=== PATIENT | male | born 1930 | race Caucasian/White ===

== ENCOUNTER 2016-09-17 15:16 | Emergency (ER) | payer OTHER, MEDICARE ==
[~2016-09-17] VITALS: Ht 182.8 cm; Wt 79.4 kg
[~2016-09-17 15:16] MED LIST: ACETAMINOPHEN325 M2 PO; ALLOPURINOL100 MG PO; AMBIEN5 MG PO; AMLODIPINE BES2.5 MG PO; AMLODIPINE BESYL5 MG PO; APAP325 MG PO; ARTHRITIS PAIN650 M3 PO; ASPIRIN81 M1 PO; AUGMENTIN 875 M1 TAB PO; B121000 MCG/1 IM; CEFTIN500 M1 PO; CLARITIN10 MG PO; COLACE100 MG PO; CORDARONE200 MG PO; COZAAR100 MG PO; CRESTOR10 MG PO; CRESTOR20 M1 PO; Clopidogrel75 MG PO; DOCUSATE SODIU100 M2 PO; DOXYCYCLINE100 MG PO; DUONEB 3 MG/3 ML3 M1 NEB; FISH FLAX BORAGE OIL PO; GLIPIZIDE2.5 MG PO; GLIPIZIDE5 MG PO; GLUCOPHAGE500 MG PO; GUAFENESIN400 MG PO; GUAIFENESIN600 MG PO; HUMALOG100 U/ML SC; HYDRODIURIL25 MG PO; HYDROPHILIC GRX1 OIN TP; K-TAB20 MEQ PO; LASIX20 MG PO; LASIX40 MG PO; LATANOPROST2.5 ML OP; LATANOPROST2.5 ML OU; LEVOFLOXAC500 MG/100 IV; LOPRESSOR25 MG PO; LOSARTAN POTAS100 M1 PO; LYRICA75 M1 PO; Lopressor25 MG PO; Lovenox40 MG/0.4 SC; METOPROLOL50 MG PO; MIRALAX POWDER17 G1 PO; MORPHINE SULFAT15 M7 PO; MS CONTIN30 MG PO; Meclizine25 MG PO; NEURONTIN300 MG PO; NEURONTIN600 MG PO; NITROSTAT0.4 MG SL; NORVASC5 MG PO; NOVAPLUS SOLU-M40 MG IV; OMEPRAZOLE DR20 MG PO; OVRAL-21 50 MCG1 TAB PO; OXYBUTYNIN CHLOR5 MG PO; OXYCODONE HCL5 MG PO; PANTOPRAZOLE SO20 MG PO; PENNSAID112 GM TP; PLAVIX75 M1 PO; PLAVIX75 MG PO; PREDNICOT20 MG PO; PRILOSEC OTC20 MG PO; RANITIDINE150 MG PO; RED YEAST RICE600 MG PO; REFRESH 1 ML1 ML OPH; SENNA8.6 MG PO; STOOL SOFTENER100 MG PO; TRAVAPROST; TRAVAPROST OPH; TRAVATAN 0.0042.5 M1 INTRAOC; TRAVATAN Z 5 ML5 ML OPH; TYLENOL W/CODEI1 TA2 PO; VANCOMYCIN1.5 GM/251 IV; VISION PLUS LU1 EACH PO; VITAMIN B-12100 MCG PO; VITAMIN C100 M1 PO; VITAMIN D50000 IU PO; XALATAN 0.005%2.5 ML INTRAOC; ZOLOFT25 MG PO; ZOSYN 50 ML50 ML IV; [UNRECOGNIZED DRUG - OTHER] PO
[2016-09-17 15:31] VITALS: BP 144/58
[2016-09-17 15:49] LABS: BASO % 0.5 % (0.0-1.0); EOS # 0.2 10*3/uL (0.0-0.4); EOS % 2.6 % (1.0-4.0); HEMATOCRIT 37.2 % (42.0-52.0); HEMOGLOBIN 11.6 g/dl (14.0-18.0); LYMPH # 1.2 10*3/uL (1.3-4.4); LYMPH % 20.3 % (27.0-41.0); MEAN CELL VOLUME 89.4 fl (80.0-94.0); MEAN CORPUSCULAR HGB 27.9 pg (27.0-31.0); MEAN CORPUSCULAR HGB CONC 31.2 g/dl (33.0-37.0); MEAN PLATELET VOLUME 12.3 fl (9.6-12.3); MONO # 0.4 10*3/uL (0.1-1.0); MONO % 7.4 % (3.0-9.0); NEUT % 68.9 % (47.0-73.0); PLATELET COUNT AUTOMATED 95 10*3/uL (130-400); RED BLOOD COUNT 4.16 10*6/uL (4.50-5.90); WHITE BLOOD COUNT 5.9 10*3/uL (4.8-10.8)
[2016-09-17] MEDS ORDERED: LASIX40 MG PO (15:56)
[2016-09-17] MEDS ORDERED: CLOPIDOGREL75 MG PO (15:57)
[2016-09-17] MEDS ORDERED: B12100 MC1 PO (15:58)
[2016-09-17] MEDS ORDERED: CHEWABLE VITE1 CTB PO (15:59)
[2016-09-17 16:05] LABS: PROTHROMBIN TIME 10.7 SECONDS (9.0-12.4)
[2016-09-17 16:06] LABS: BILIRUBIN, TOTAL 0.5 mg/dl (0.2-1.0); BUN 18 mg/dl (7-24); MAGNESIUM 1.8 mg/dL (1.5-2.1); SODIUM 143 mmol/L (136-145); TOTAL PROTEIN 7.2 gm/dL (6.4-8.2); TROPONIN I 0.017 ng/ml (<0.045)
[2016-09-17 16:07] LABS: ALBUMIN 3.4 gm/dl (3.1-4.5); ALKALINE PHOSPHATASE 98 U/L (45-117); C-REACTIVE PROTEIN 6.02 MG/DL (0-0.3); CARBON DIOXIDE 32 mmol/L (21-32); CHLORIDE 102 mmol/L (98-107); CPK 121 U/L (39-308); EST GLOM FILT AFRICAN AMERICAN > 60 ml/min; GLUCOSE 130 mg/dL (65-99); POTASSIUM 4.3 mmol/L (3.5-5.1); SGOT/AST 17 IU/L (3-35); SGPT/ALT 16 U/L (12-78)
[2016-09-17 16:09] LABS: CKMB 7.5 ng/ml (0.5-3.6)
== END 2016-09-17 18:13 | disposition home or self-care (01) ==
LOC: ED 15:16
PROVIDERS: Registered Nurse
DX: J90 Pleural effusion, not elsewhere classified (principal); R60.0 Localized edema; I25.10 Atherosclerotic heart disease of native coronary artery without angina pectoris; Z87.891 Personal history of nicotine dependence; Z98.890 Other specified postprocedural states; Z79.82 Long term (current) use of aspirin; Z79.899 Other long term (current) drug therapy; Z88.5 Allergy status to narcotic agent; Z88.6 Allergy status to analgesic agent; Z88.3 Allergy status to other anti-infective agents; Z96.653 Presence of artificial knee joint, bilateral

== ENCOUNTER 2016-10-09 08:58 | Inpatient (IN) | payer OTHER ==
[~2016-10-09] VITALS: Ht 170.2 cm; Wt 78.1 kg
--- NOTE | ~2016-10-09 | PR ---
[place], [place] PROGRESS NOTE NAME: [facility]BIO [facility] [id number] UNIT #: [id number] ROOM: 515 DOCTOR: ANÍBAL GUERIN MD BIRTHDATE: [birth year] DOS: SUBJECTIVE: The patient is sitting up in chair, having his breakfast, reporting significant improvement in his shortness of breath since admission. He expressed his wishes to go home and followup with [facility] next week. No chest pain. No symptomatic palpitation. No cough. No fever. No chills. Good appetite. OBJECTIVE: VITAL SIGNS: Blood pressure 116/51, heart rate 72, respiratory rate of 16, temperature 97.5. NECK: Good upstroke. No bruit. HEART: S1, S2 with faint systolic ejection murmur at right upper sternal border. LUNGS: Improved air movement on the right lower lobe. There is no wheezing, no rales. LOWER EXTREMITIES: There is no significant edema. LABORATORY DATA: White count 6.7, hemoglobin 11.7, platelet count 99,000. Potassium 4.3, creatinine 0.8 and GFR more than 60%. Hemoglobin A1c 6.2. Normal CPKs of 43, MB of 2.5. Troponin less than 0.015. ASSESSMENT AND PLAN: Status post recent aortic valve replacement with transcatheter aortic valve replacement at [facility] in a patient who had recurrent right pleural effusion. The patient appears to have improved significantly since his admission. There is significant improvement also on physical exam. Our plan is to continue with current medical regimen and patient can be discharged home with followup at [facility]. Should patient wish to follow up with us, we would like to see him within 4-6 weeks. Low salt diet was emphasized along with daily weights and reporting weight gain of over 3-5 pounds. Should there be a service of congestive heart failure clinic, then patient will benefit from such clinic. ANÍBAL GUERIN MD CM:PNTRANS [id number] ANÍBAL GUERIN MD 10/11/162200 interface
--- NOTE | ~2016-10-09 | CON ---
[place], [place] REPORT OF CONSULTATION NAME: AUBREY RUBIO UNIT #: [id number] ROOM: 515 DOCTOR: ANÍBAL GUERIN MD BIRTHDATE: [birth year] DOS: 10/10/2016 REQUESTING PHYSICIAN: Dr. Mane. REASON FOR CONSULTATION: Shortness of breath and chest pain. ASSESSMENT: 1. Current presentation with progressive shortness of breath over the past few weeks. 2. Chronic history of shortness of breath since the patient's TAVR surgery with recurrent right pleural effusion. 3. Status post what looks like a permanent chest tube. 4. Evidence of large pleural effusion with hemothorax on CT scan of the chest with negative findings for pulmonary embolus. 5. Recent TAVR surgery at [facility]. 6. Recent pacemaker placement following TAVR surgery. 7. No complaint of chest pain. PLAN: 1. Cycle cardiac enzymes. 2. Proceed with echocardiogram. 3. Right pleural effusion and management will be deferred to Pulmonary. 4. No further cardiac testing at this time. 5. Obtain old records from [facility] regarding the patient's previous cardiac intervention and TAVR surgery. 6. Early followup in our clinic within 2-4 weeks. HISTORY AND PHYSICAL: The patient is a pleasant 86-year-old gentleman unknown to our practice, was referred by Dr. Mane for further evaluation of shortness of breath that has been going for the past few weeks. The patient apparently got worse over time with shortness of breath, dyspnea on exertion, and decreased functional capacity with almost inability to breathe while resting. On presentation, the patient was found out to have a large pleural effusion. A CT of the chest ruled out the possibility of pulmonary emboli, but there was a large pleural effusion along with hemothorax. The patient apparently had some kind of intervention that made him feel significantly improved and he is asking if he can be discharged home since he has an appointment with [facility] next week. From the cardiac point of view, he denies any specific chest pain, chest pressure, heaviness or tightness. No symptomatic palpitation. There is no PND, orthopnea or pedal edema. Never had any symptomatic palpitation or any associated dizziness, lightheadedness or near syncope. No fever, no chills, no night sweats, maintained good appetite, no weight loss. PAST MEDICAL HISTORY: As detailed in my assessment. SOCIAL HISTORY: The patient denies any current tobacco, alcohol or illicit drug abuse. FAMILY HISTORY: Not applicable in view of patient age. [place], [place] REPORT OF CONSULTATION NAME: AUBREY RUBIO UNIT #: [id number] ROOM: [facility] DOCTOR: ANÍBAL GUERIN MD BIRTHDATE: [birth year] CURRENT MEDICATIONS: Multivitamin, Lasix, Lovenox, Colace, B12, Plavix, aspirin, allopurinol, Protonix, Lyrica, MS Contin, Lopressor, DuoNeb, Restoril, bisacodyl, Tylenol. ALLERGIES: THE PATIENT IS ALLERGIC TO NIACIN, HYDROCODONE, AND PERCOCET. REVIEW OF SYSTEMS: Currently, the patient denies any headache, diplopia or blurry vision. No fever, no chills, no night sweats. No abdominal pain, no bright blood per rectum, no tarry stools. No reported chest pain. The patient admits to joint pain and muscular pain. There is no anxiety, no depression. No polyuria, no polydipsia, no skin rash. Review of all other systems has been negative. PHYSICAL EXAMINATION: GENERAL: The patient is alert and oriented x 3, quite pleasant, sitting up in chair. Denies any complaint, having his dinner. VITAL SIGNS: Blood pressure 120/49, heart rate 66, respiratory rate of 14, temperature 97.7. HEENT: Extraocular muscles intact. Pupils equal, round, reactive to light. Conjunctivae, mild pallor. Throat, no petechiae. NECK: Good upstroke. A faint bruit could be heard over both carotids. HEART: S1, S2 with a faint systolic ejection murmur, right upper sternal border. No rub. No retrosternal heave. CHEST AND BACK: No deformities. LUNGS: Significant decrease in air movement over the right middle and lower lobe. No joan wheezing or rales. ABDOMEN: Soft, nontender, present bowel sounds. EXTREMITIES: Lower extremities, mild ankle edema with faint distal pulses, both under TANVI hose. NEUROLOGIC: Grossly nonfocal. SKIN: No significant rash. LABORATORY DATA: White count 7.3, hemoglobin 11.1, potassium 3.9. GFR more than 60%. Hemoglobin A1c 6.2. Magnesium 2.2. Normal CK and troponin. Cholesterol 204, LDL 131 and HDL 60. Vitamin B12 of 1173. Normal thyroid function tests. ANÍBAL GUERIN MD CM:CONSTR:REPORT OF CONSULTATION 1754 10/11/16 0042 interface
[2016-10-09 08:58] VITALS: BP 116/93
[~2016-10-09 08:58] MED LIST changes: +B12100 MC1 PO; +CHEWABLE VITE1 CTB PO; +CLOPIDOGREL75 MG PO
[2016-10-09 09:35] LABS: BASO % 0.5 % (0.0-1.0); EOS # 0.1 10*3/uL (0.0-0.4); EOS % 1.3 % (1.0-4.0); HEMOGLOBIN 12.2 g/dl (14.0-18.0); LYMPH # 0.8 10*3/uL (1.3-4.4); LYMPH % 13.1 % (27.0-41.0); MEAN CELL VOLUME 87.6 fl (80.0-94.0); MEAN CORPUSCULAR HGB 28.1 pg (27.0-31.0); MEAN CORPUSCULAR HGB CONC 32.1 g/dl (33.0-37.0); MEAN PLATELET VOLUME 10.1 fl (9.6-12.3); MONO # 0.4 10*3/uL (0.1-1.0); MONO % 6.7 % (3.0-9.0); NEUT # 4.7 10*3/uL (2.3-7.9); NEUT % 78.2 % (47.0-73.0); PLATELET COUNT AUTOMATED 84 10*3/uL (130-400); RED BLOOD COUNT 4.34 10*6/uL (4.50-5.90); RED CELL DISTRI WIDTH 16.9 % (0-14.5)
[2016-10-09 09:52] LABS: BUN 20 mg/dl (7-24); CARBON DIOXIDE 29 mmol/L (21-32); CHLORIDE 101 mmol/L (98-107); EST GLOM FILT AFRICAN AMERICAN > 60 ml/min; GLUCOSE 115 mg/dL (65-99); POTASSIUM 4.2 mmol/L (3.5-5.1); SODIUM 142 mmol/L (136-145); TROPONIN I < 0.015 ng/ml (<0.045)
[2016-10-09 10:13] VITALS: BP 150/60
[2016-10-09 12:29] VITALS: BP 141/65
[2016-10-09 14:42] VITALS: BP 135/58
[2016-10-09 16:45] VITALS: BP 140/62
[2016-10-09 20:00] VITALS: BP 143/55
[2016-10-10] VITALS: BP 113/45
[2016-10-10 00:33] LABS: CKMB 2.5 ng/ml (0.5-3.6)
[2016-10-10 06:08] LABS: BASO % 0.1 % (0.0-1.0); EOS % 0.3 % (1.0-4.0); HEMATOCRIT 34.3 % (42.0-52.0); HEMOGLOBIN 11.1 g/dl (14.0-18.0); IG # 0.1 10*3/uL (0.0-0.1); LYMPH # 0.9 10*3/uL (1.3-4.4); LYMPH % 12.1 % (27.0-41.0); MEAN CELL VOLUME 88.2 fl (80.0-94.0); MEAN CORPUSCULAR HGB 28.5 pg (27.0-31.0); MEAN CORPUSCULAR HGB CONC 32.4 g/dl (33.0-37.0); MEAN PLATELET VOLUME 11.5 fl (9.6-12.3); MONO # 0.4 10*3/uL (0.1-1.0); NEUT # 5.9 10*3/uL (2.3-7.9); NEUT % 80.8 % (47.0-73.0); PLATELET COUNT AUTOMATED 82 10*3/uL (130-400); RED BLOOD COUNT 3.89 10*6/uL (4.50-5.90); WHITE BLOOD COUNT 7.3 10*3/uL (4.8-10.8)
[2016-10-10 06:21] LABS: ALBUMIN 3.4 gm/dl (3.1-4.5); CHLORIDE 101 mmol/L (98-107); GLUCOSE 108 mg/dL (65-99); POTASSIUM 3.9 mmol/L (3.5-5.1); SODIUM 142 mmol/L (136-145)
[2016-10-10 06:24] LABS: CKMB 2.5 ng/ml (0.5-3.6)
[2016-10-10 06:29] LABS: ALKALINE PHOSPHATASE 89 U/L (45-117); BILIRUBIN, TOTAL 0.4 mg/dl (0.2-1.0); BUN 24 mg/dl (7-24); CARBON DIOXIDE 28 mmol/L (21-32); CHOLESTEROL 204 mg/dL (<200); EST GLOM FILT AFRICAN AMERICAN > 60 ml/min; HDL CHOLESTEROL 60 mg/dl (40-60); LDL CHOLESTEROL 131 mg/dL (9-159); MAGNESIUM 2.2 mg/dL (1.5-2.1); SGOT/AST 18 IU/L (3-35); SGPT/ALT 16 U/L (12-78); THYROID STIM HORMONE (HS) 0.992 uIU/ml (0.358-4.75); TOTAL PROTEIN 7.1 gm/dL (6.4-8.2); TRIGLYCERIDES 66 mg/dl (<150); VLDL CHOLESTEROL 13 mg/dL (6-40)
[2016-10-10 06:39] LABS: INTERNATIONAL NORM RATIO 1.1 (2.0-3.5); PROTHROMBIN TIME 11.3 SECONDS (9.0-12.4)
[2016-10-10 06:45] LABS: HEMOGLOBIN A1c 6.2 % (4.8-5.6)
[2016-10-10 07:10] LABS: VITAMIN D, 25-HYDROXY 33.2 ng/mL (30-100)
[2016-10-10 07:13] LABS: FOLIC ACID > 24.00 ng/mL (>5.38)
[2016-10-10 08:00] VITALS: BP 111/44
[2016-10-10 12:00] VITALS: BP 116/40
[2016-10-10 16:00] VITALS: BP 120/49
[2016-10-10 20:00] VITALS: BP 133/45
[2016-10-11] VITALS: BP 116/51
[2016-10-11 06:02] LABS: BASO % 0.4 % (0.0-1.0); EOS # 0.2 10*3/uL (0.0-0.4); EOS % 2.8 % (1.0-4.0); HEMATOCRIT 37.2 % (42.0-52.0); HEMOGLOBIN 11.7 g/dl (14.0-18.0); LYMPH # 1.4 10*3/uL (1.3-4.4); LYMPH % 20.5 % (27.0-41.0); MEAN CELL VOLUME 90.1 fl (80.0-94.0); MEAN CORPUSCULAR HGB 28.3 pg (27.0-31.0); MEAN CORPUSCULAR HGB CONC 31.5 g/dl (33.0-37.0); MEAN PLATELET VOLUME 11.7 fl (9.6-12.3); MONO # 0.4 10*3/uL (0.1-1.0); MONO % 6.3 % (3.0-9.0); NEUT # 4.7 10*3/uL (2.3-7.9); NEUT % 69.7 % (47.0-73.0); PLATELET COUNT AUTOMATED 99 10*3/uL (130-400); RED BLOOD COUNT 4.13 10*6/uL (4.50-5.90); RED CELL DISTRI WIDTH 17.3 % (0-14.5); WHITE BLOOD COUNT 6.7 10*3/uL (4.8-10.8)
[2016-10-11 06:29] LABS: BUN 24 mg/dl (7-24); CARBON DIOXIDE 31 mmol/L (21-32); CHLORIDE 99 mmol/L (98-107); EST GLOM FILT AFRICAN AMERICAN > 60 ml/min; GLUCOSE 85 mg/dL (65-99); POTASSIUM 4.3 mmol/L (3.5-5.1); SODIUM 142 mmol/L (136-145)
[2016-10-11 08:00] VITALS: BP 127/44
== END 2016-10-11 11:50 | disposition home or self-care (01) | DRG 206 ==
LOC: ED 08:58 → 5E 14:02 → EDHOLD 14:02 → 5E 15:24
PROVIDERS: Emergency Medicine; Hospitalist
DX: M94.0 Chondrocostal junction syndrome [Tietze] (principal); I50.32 Chronic diastolic (congestive) heart failure; I48.2 Chronic atrial fibrillation; E87.1 Hypo-osmolality and hyponatremia; I25.2 Old myocardial infarction; I25.10 Atherosclerotic heart disease of native coronary artery without angina pectoris; M1A.9XX0 Chronic gout, unspecified, without tophus (tophi); E53.8 Deficiency of other specified B group vitamins; Z96.653 Presence of artificial knee joint, bilateral; K21.9 Gastro-esophageal reflux disease without esophagitis; Z87.891 Personal history of nicotine dependence; Z95.0 Presence of cardiac pacemaker; Z88.8 Allergy status to other drugs, medicaments and biological substances; Z88.6 Allergy status to analgesic agent; Z85.46 Personal history of malignant neoplasm of prostate; Z90.49 Acquired absence of other specified parts of digestive tract; Z95.818 Presence of other cardiac implants and grafts; Z98.49 Cataract extraction status, unspecified eye; Z82.49 Family history of ischemic heart disease and other diseases of the circulatory system; Z80.8 Family history of malignant neoplasm of other organs or systems; Z84.1 Family history of disorders of kidney and ureter; Z79.82 Long term (current) use of aspirin; Z79.899 Other long term (current) drug therapy; Z95.2 Presence of prosthetic heart valve; Z90.79 Acquired absence of other genital organ(s)

== ENCOUNTER 2016-11-29 17:28 | Inpatient (IN) | payer MEDICARE ==
[~2016-11-29] VITALS: Ht 170.2 cm; Wt 77.4 kg
--- NOTE | ~2016-11-29 | EKG ---
[place], [place] ELECTROCARDIOGRAM REPORT NAME: AUBREY RUBIO UNIT #: [id number] ROOM: 511 DOCTOR: KEYANA JONES MD BIRTHDATE: [birth year] DOS: 11/29/2016 TIME: 1842 hours. Normal sinus rhythm at 87 beats per minute. Marked left axis deviation. Probably complete left bundle-branch block. An abnormal ECG. No previous tracing is available for comparison. KEYANA JONES MD CM:EKGRPT:ELECTROCARDIOGRAM REPORT 31 53 KEYANA JONES MD
[2016-11-29 17:28] VITALS: BP 111/56
[2016-11-29 18:12] LABS: BASO # 0.1 10*3/uL (0.0-0.1); BASO % 0.6 % (0.0-1.0); EOS # 0.1 10*3/uL (0.0-0.4); EOS % 1.5 % (1.0-4.0); HEMATOCRIT 28.1 % (42.0-52.0); HEMOGLOBIN 8.8 g/dl (14.0-18.0); IG # 0.1 10*3/uL (0.0-0.1); LYMPH # 1.6 10*3/uL (1.3-4.4); LYMPH % 18.9 % (27.0-41.0); MEAN CELL VOLUME 90.4 fl (80.0-94.0); MEAN CORPUSCULAR HGB 28.3 pg (27.0-31.0); MEAN CORPUSCULAR HGB CONC 31.3 g/dl (33.0-37.0); MEAN PLATELET VOLUME 12.5 fl (9.6-12.3); MONO # 0.8 10*3/uL (0.1-1.0); MONO % 10.2 % (3.0-9.0); NEUT # 5.5 10*3/uL (2.3-7.9); NEUT % 67.5 % (47.0-73.0); NUCLEATED RED BLOOD CELL 0.4 % (0.0-0.0); PLATELET COUNT AUTOMATED 68 10*3/uL (130-400); RED BLOOD COUNT 3.11 10*6/uL (4.50-5.90); RED CELL DISTRI WIDTH 17.2 % (0-14.5); WHITE BLOOD COUNT 8.2 10*3/uL (4.8-10.8)
[2016-11-29 18:28] LABS: BILIRUBIN, TOTAL 0.7 mg/dl (0.2-1.0); POTASSIUM 4.4 mmol/L (3.5-5.1)
[2016-11-29 19:52] VITALS: BP 108/53
[2016-11-29 20:00] VITALS: BP 111/56
[2016-11-29 20:09] LABS: LA>2 REFLEX 2 HR DRAW NOW
[2016-11-29 20:26] LABS: LA>2 RFLX FOLLOW UP AT 2 HRS 4.3 mmol/L (0.4-2.0)
[2016-11-29 20:52] LABS: BILIRUBIN NEGATIVE (NEGATIVE); BLOOD NEGATIVE (NEGATIVE); CLARITY CLEAR (CLEAR); COLOR YELLOW (YELLOW); GLUCOSE NEGATIVE (NEGATIVE); KETONE NEGATIVE (NEGATIVE); LEUKO ESTERASE TRACE (NEGATIVE); NITRITE NEGATIVE (NEGATIVE); PROTEIN TRACE (NEGATIVE); SPECIFIC GRAVITY 1.015 (1.005-1.030)
[2016-11-29 20:58] LABS: BACTERIA TRACE; HYALINE CAST 41-50
[2016-11-29 21:36] VITALS: BP 128/69
[2016-11-29 21:54] LABS: CKMB 3.3 ng/ml (0.5-3.6)
[2016-11-29 22:21] LABS: LA>2 REFLEX 4 HR DRAW NOW
[2016-11-30] VITALS: BP 120/59
[2016-11-30 03:45] LABS: BASO % 0.5 % (0.0-1.0); EOS # 0.2 10*3/uL (0.0-0.4); EOS % 3.1 % (1.0-4.0); HEMATOCRIT 25.4 % (42.0-52.0); HEMOGLOBIN 7.8 g/dl (14.0-18.0); IG # 0.1 10*3/uL (0.0-0.1); LYMPH # 0.8 10*3/uL (1.3-4.4); LYMPH % 12.7 % (27.0-41.0); MEAN CELL VOLUME 90.7 fl (80.0-94.0); MEAN CORPUSCULAR HGB 27.9 pg (27.0-31.0); MEAN CORPUSCULAR HGB CONC 30.7 g/dl (33.0-37.0); MEAN PLATELET VOLUME 11.7 fl (9.6-12.3); MONO # 0.6 10*3/uL (0.1-1.0); MONO % 8.4 % (3.0-9.0); NEUT # 4.9 10*3/uL (2.3-7.9); NEUT % 74.5 % (47.0-73.0); PLATELET COUNT AUTOMATED 57 10*3/uL (130-400); WHITE BLOOD COUNT 6.6 10*3/uL (4.8-10.8)
[2016-11-30 03:58] LABS: POTASSIUM 4.3 mmol/L (3.5-5.1)
[2016-11-30 04:00] VITALS: BP 103/64
[2016-11-30 04:03] LABS: FREE T4 1.13 ng/dl (0.76-1.46)
[2016-11-30 04:09] LABS: THYROID STIM HORMONE (HS) 1.56 uIU/ml (0.358-4.75)
[2016-11-30 07:23] LABS: FOLIC ACID > 24.00 ng/mL (>5.38); VITAMIN D, 25-HYDROXY 34.3 ng/mL (30-100)
[2016-11-30 08:07] VITALS: BP 98/52
[2016-11-30 12:30] VITALS: BP 95/52
[2016-11-30 16:00] VITALS: BP 91/53
[2016-11-30 20:00] VITALS: BP 109/47
[2016-12-01] VITALS: BP 121/57
[2016-12-01 05:54] LABS: BUN 38 mg/dl (7-24); CARBON DIOXIDE 30 mmol/L (21-32); CHLORIDE 104 mmol/L (98-107); EST GLOM FILT AFRICAN AMERICAN > 60 ml/min; GLUCOSE 111 mg/dL (65-99); POTASSIUM 4.6 mmol/L (3.5-5.1); SODIUM 140 mmol/L (136-145)
[2016-12-01 07:17] LABS: LA>2 REFLEX 2 HR DRAW NOW
[2016-12-01 07:33] LABS: LA>2 RFLX FOLLOW UP AT 2 HRS 3.6 mmol/L (0.4-2.0)
[2016-12-01 08:00] VITALS: BP 121/56
[2016-12-01 09:25] LABS: LA>2 REFLEX 4 HR DRAW NOW
[2016-12-01 12:00] VITALS: BP 119/57
[2016-12-01 16:00] VITALS: BP 108/65
[2016-12-01 20:00] VITALS: BP 119/76
[2016-12-02] VITALS: BP 127/74
[2016-12-02 06:01] LABS: BASO # 0.1 10*3/uL (0.0-0.1); BASO % 0.7 % (0.0-1.0); EOS # 0.2 10*3/uL (0.0-0.4); EOS % 3.2 % (1.0-4.0); HEMATOCRIT 28.1 % (42.0-52.0); HEMOGLOBIN 8.4 g/dl (14.0-18.0); IG # 0.1 10*3/uL (0.0-0.1); LYMPH # 1.3 10*3/uL (1.3-4.4); LYMPH % 18.6 % (27.0-41.0); MEAN CELL VOLUME 93.7 fl (80.0-94.0); MEAN CORPUSCULAR HGB CONC 29.9 g/dl (33.0-37.0); MEAN PLATELET VOLUME 12.9 fl (9.6-12.3); MONO # 0.6 10*3/uL (0.1-1.0); MONO % 8.3 % (3.0-9.0); NEUT # 4.7 10*3/uL (2.3-7.9); NEUT % 68.3 % (47.0-73.0); NUCLEATED RED BLOOD CELL 0.6 % (0.0-0.0); PLATELET COUNT AUTOMATED 108 10*3/uL (130-400); RED CELL DISTRI WIDTH 17.4 % (0-14.5); WHITE BLOOD COUNT 6.9 10*3/uL (4.8-10.8)
[2016-12-02 06:12] LABS: ALBUMIN 2.8 gm/dl (3.1-4.5); BILIRUBIN, TOTAL 0.5 mg/dl (0.2-1.0); POTASSIUM 4.6 mmol/L (3.5-5.1); TOTAL PROTEIN 6.5 gm/dL (6.4-8.2)
[2016-12-02 08:00] VITALS: BP 120/58
[2016-12-02 12:00] VITALS: BP 100/54
[2016-12-02] MEDS ORDERED: NYSTATIN CREAM15 GM T (14:00)
[2016-12-03] MEDS ORDERED: MS CONTIN15 MG PO (18:03)
== END 2016-12-02 14:17 | disposition home or self-care (01) | DRG 683 ==
LOC: ED 17:28 → EDHOLD 20:34 → 5E 20:34
PROVIDERS: Emergency Medicine; Family Medicine; Internal Medicine; Student in an Organized Health Care Education/Training Program
DX: N17.0 Acute kidney failure with tubular necrosis (principal); I50.32 Chronic diastolic (congestive) heart failure; E87.2 Acidosis; I48.0 Paroxysmal atrial fibrillation; B37.49 Other urogenital candidiasis; E86.0 Dehydration; M1A.00X1 Idiopathic chronic gout, unspecified site, with tophus (tophi); I25.2 Old myocardial infarction; Z66 Do not resuscitate; Z51.5 Encounter for palliative care; I25.10 Atherosclerotic heart disease of native coronary artery without angina pectoris; Z96.653 Presence of artificial knee joint, bilateral; K21.9 Gastro-esophageal reflux disease without esophagitis; Z85.46 Personal history of malignant neoplasm of prostate; Z95.0 Presence of cardiac pacemaker; Z90.49 Acquired absence of other specified parts of digestive tract; Z98.42 Cataract extraction status, left eye; Z98.41 Cataract extraction status, right eye; Z95.2 Presence of prosthetic heart valve; Z87.891 Personal history of nicotine dependence; Z83.42 Family history of familial hypercholesterolemia; Z84.1 Family history of disorders of kidney and ureter; Z88.1 Allergy status to other antibiotic agents; Z88.6 Allergy status to analgesic agent; Z88.8 Allergy status to other drugs, medicaments and biological substances; Z79.82 Long term (current) use of aspirin; Z79.899 Other long term (current) drug therapy

== ENCOUNTER 2016-12-03 11:54 | Inpatient (IN) | payer MEDICARE ==
[~2016-12-03] VITALS: Ht 170.2 cm; Wt 86.0 kg
--- NOTE | ~2016-12-03 | PR ---
[place], [place] PROGRESS NOTE NAME: [facility]BIO [facility] [id number] UNIT #: [id number] ROOM: 409 DOCTOR: ANÍBAL GUERIN MD BIRTHDATE: [birth year] DOS: SUBJECTIVE: The patient continue to do well showing more improvement on his shortness of breath and his PND and orthopnea. OBJECTIVE: VITAL SIGNS: Blood pressure 119/55, heart rate 72, respiratory rate of 18, temperature 98. NECK: Good upstroke, no bruit. HEART: S1, S2 with no rub. LUNGS: Decreased air movement, but no joan wheezing or rales. ABDOMEN: Soft, nontender, present bowel sounds. EXTREMITIES: Lower extremities improved edema. LABORATORY DATA: Hemoglobin 8.3, creatinine 1.3 compared to 1.7 yesterday, BUN 51 compared to 56 yesterday, significant improvement in liver function tests. Troponin 0.211, 0.213 and 0.213. IMPRESSION: Current presentation with significant volume overload, most likely due to patient's renal shutdown, the patient appears to be responding quite well to diuresis for that. I will continue with diuretics, Lasix 60 mg IV, but I will decrease the dose to once a day. Echocardiogram is still pending to check for wall motion abnormalities and LV function. The patient from the cardiac point of view shows some improvement. Recommend increased activity and consider physical therapy and occupational therapy. In regard to the patient's cardiac status, I will increase the Lopressor to double the Lopressor now to 25 mg twice a day. ANÍBAL GUERIN MD CM:PNTRANS [id number] [id number] ANÍBAL GUERIN MD 12/05/16 1449 interface
--- NOTE | ~2016-12-03 | CON ---
[place], [place] REPORT OF CONSULTATION [id number] UNIT #: [id number] ROOM: 409 DOCTOR: ANÍBAL GUERIN MD BIRTHDATE: [birth year] DOS: REQUESTING PHYSICIAN: Dr. David Herman. REASON FOR CONSULTATION: Shortness of breath. ASSESSMENT: 1. Current presentation after one day of discharge with shortness of breath, dyspnea on exertion, PND and orthopnea. 2. Significant weight gain over 19 pounds along with PND and orthopnea. 3. Status post TAVR procedure in September of last year. 4. Coronary artery disease with multiple stents, last one was in October of last year. 5. Hypertension. 6. Hyperlipidemia. 7. Borderline diabetes. 8. Chronic renal failure. 9. Chronic right pleural effusion with Fluoridex draining still 150 mL every other day. 10. Cough productive of grayish sputum. 11. Previous history of tobacco abuse. PLAN: 1. Stop IV fluid. 2. Continue to cycle cardiac enzymes. 3. Obtain old records regarding recent echocardiogram from [facility]. 4. Aggressive diuresis. 5. Highly recommend a nephrology consultation. 6. Consider pulmonary consultation. 7. Abnormal liver function test per PCP/GI services. 8. No further cardiac testing at this time. 9. Limited echo for wall motion abnormalities. HISTORY AND PHYSICAL: The patient is a pleasant 86-year-old gentleman, unknown to our practice, was referred by Dr. Herman for evaluation of shortness of breath, dyspnea on exertion that occurs apparently overnight. The patient was admitted recently last Friday to the hospital what looks like for dehydration, was given IV fluid and discharged home yesterday. The patient was noticed to have PND, orthopnea, significant bilateral lower extremity edema and possible increase in abdominal girth. The patient did notice that he has to sit upright in order for him to able to go to sleep and finally has slept in the recliner. The patient also noticed some cough with sputum. No fever, no chills, no night sweats. No change in appetite. Again, there was 19 pound weight gain. The patient had history of TAVR and coronary disease as noted above. The patient in general pain is jaw pain and tightness in the chest, which he never had done during this admission. Overall, maintained a stable appetite. PAST MEDICAL HISTORY: As detailed in my assessment. SOCIAL HISTORY: No current tobacco, alcohol or illicit drug abuse. The patient [place], [place] REPORT OF CONSULTATION NAME: AUBREY RUBIO UNIT #: [id number] ROOM: 409 DOCTOR: ANÍBAL GUERIN MD BIRTHDATE: [birth year] quit smoking in 1991. FAMILY HISTORY: Not applicable in view of patient age. CURRENT MEDICATIONS: Lopressor, Lovenox, Protonix, lactulose, Lasix, multivitamin, Colace, Lyrica, morphine. ALLERGIES: The patient is allergic to NIACIN, HYDROCODONE, OXYCODONE, PERCOCET, VICODIN, IBUPROFEN, INDOMETHACIN, TRAMADOL, DOXYCYCLINE. REVIEW OF SYSTEMS: Currently, the patient denies any headache, diplopia or blurry vision. No fever, no chills, no night sweats. No abdominal pain even though the patient revealed abdominal distention, no bright red blood per rectum or tarry stools. The patient admits to joint pain and muscular pain. No anxiety, no depression. The patient is completely anuric over the past 24 hours. No dysuria. No skin rash. Review of all other systems has been negative. PHYSICAL EXAMINATION: GENERAL: The patient is alert and temperature 3, quite pleasant, sitting up in bed having his dinner, most of the history obtained from his . VITAL SIGNS: Blood pressure 117/73, heart rate 78, respiratory rate of 18, temperature 97.6. HEENT: Extraocular muscles intact. Pupils equal, round, reactive to light. Conjunctivae mild RV to be quite pale. NECK: Good carotid upstroke, no JVD, no carotid bruit, no lymphadenopathy, no thyromegaly. HEART: S1, S2 with faint systolic ejection murmur right upper sternal border, holosystolic murmur at left lower sternal border. No rub or sternal heave. CHEST AND BACK: No deformities. LUNGS: Significant severe decrease in breath sound on the right lower lobe. No joan wheezing. Minimal rhonchi at the bases. ABDOMEN: Distended, nontender, present hypoactive bowel sounds. Unable to appreciate any masses or bruits. This is a very limited exam. EXTREMITIES: Lower extremity has significant edema, right more than left. 2-3/4 on the right. Unable to appreciate distal pulses. NEUROLOGIC: Grossly nonfocal. SKIN: No significant rash. LABORATORY DATA: White count 10.0, hemoglobin 8.8, platelet count [id number]. ABG 7.3 pH, pCO2 of 36, pO2 is 97. INR 1.4, creatinine 2.17, BUN 55, GFR 29, glucose 101, total bilirubin 1.1, AST 1157, ALT was 731, alkaline phosphatase 137. CK 158, MB 6.5. Troponin 0.240. ProBNP 26,688. Chest x-ray, there is a large right pleural effusion. [place], [place] REPORT OF CONSULTATION NAME: AUBREY RUBIO [place] UNIT #: [id number] ROOM: 409 DOCTOR: ANÍBAL GUERIN MD BIRTHDATE: [birth year] ANÍBAL GUERIN MD CM:CONSTR:REPORT OF CONSULTATION 180 12/03/162035 interface
--- NOTE | ~2016-12-03 | PR ---
[place], [place] PROGRESS NOTE NAME: AUBREY RUBIO [facility] #: [id number] UNIT #: [id number] ROOM: 409 DOCTOR: APOORVA GARRISONANÍBAL BIRTHDATE: [birth year] DOS: 12/04/2016 SUBJECTIVE: The patient is sitting up in bed, showing significant improvement from last night. He is more reclined in bed. He appears to be less tachypneic. No chest pain. No chest pressure. No heaviness. No tightness. No symptomatic palpitation. OBJECTIVE: VITAL SIGNS: Blood pressure 130/64, heart rate 82, respiratory rate of 18, temperature 98.3. NECK: Good carotid upstroke, faint bruit could be heard. HEART: S1, S2 with a faint systolic ejection murmur at right upper sternal border. No rub, no retrosternal heave. CHEST AND BACK: No deformities. LUNGS: Decreased air movement. No joan wheezing or rales. ABDOMEN: Soft, nontender. Positive bowel sounds. Obese. LOWER EXTREMITIES: There is improved edema from last night, currently appears to be 1-2/4. LABORATORY DATA: White count 9.0, hemoglobin 8.3, potassium 4.7, BUN 56, creatinine 1.7. GFR is 38%. Magnesium 2.3. Elevated liver function test including direct bilirubin, AST, ALT ____ 0.5/610/624 respectively. Alk phos 120. Troponin 0.11/0.213/0.223. CK-MB 6.4 and 6.5. CK 129 and 158. ASSESSMENT AND PLAN: Recurrent admission after 1 day of discharge for the patient who presented with what looks like prerenal azotemia that was treated with significant IV fluid, that caused the patient to gain about 19 pounds. The patient was placed on Lasix and there is significant improvement of his BUN and creatinine along with his overall fluid balance. Today, the patient is almost sitting back flat than yesterday. He is less tachypneic. There is significant improvement on his lung auscultation. For now, I will continue with diuresis with careful watch of his BUN and creatinine. The patient's liver function test is improving. I am awaiting the results of the echocardiogram to follow on wall motion abnormalities. Elevated cardiac enzymes, especially troponin appears to be due to the patient's renal failure rather than any ischemic event. The patient continues to be asymptomatic from the cardiology point of view. [place], [place] PROGRESS NOTE NAME: AUBREY RUBIO UNIT #: [id number] ROOM: 409 DOCTOR: ANÍBAL GUERIN MD BIRTHDATE: [birth year] ANÍBAL GUERIN MD CM:PNTRANS [id number] ANÍBAL GUERIN MD 12/04/16 2259 interface
[~2016-12-03 11:54] MED LIST changes: +NYSTATIN CREAM15 GM T
[2016-12-03 12:08] VITALS: BP 146/63
[2016-12-03 12:45] LABS: INTERNATIONAL NORM RATIO 1.4 (2.0-3.5); PROTHROMBIN TIME 14.9 SECONDS (9.0-12.4)
[2016-12-03 12:50] LABS: BILIRUBIN 1+ (NEGATIVE); BLOOD NEGATIVE (NEGATIVE); CLARITY SL CLOUDY (CLEAR); COLOR YELLOW (YELLOW); GLUCOSE NEGATIVE (NEGATIVE); KETONE TRACE (NEGATIVE); LEUKO ESTERASE NEGATIVE (NEGATIVE); NITRITE NEGATIVE (NEGATIVE); PROTEIN TRACE (NEGATIVE); SPECIFIC GRAVITY >= 1.030 (1.005-1.030)
[2016-12-03 12:54] LABS: ALBUMIN 3.1 gm/dl (3.1-4.5); BILIRUBIN, TOTAL 1.1 mg/dl (0.2-1.0); C-REACTIVE PROTEIN 14.5 MG/DL (0-0.3); MAGNESIUM 2.2 mg/dL (1.5-2.1); TOTAL PROTEIN 6.9 gm/dL (6.4-8.2)
[2016-12-03 13:01] LABS: TROPONIN I 0.24 ng/ml (<0.045)
[2016-12-03 13:02] LABS: CKMB 6.5 ng/ml (0.5-3.6)
[2016-12-03 13:05] VITALS: BP 140/65
[2016-12-03 13:11] LABS: BACTERIA 2+; CALCIUM OXALATE CRYSTALS 1+; URINE REFLEX COMMENT YES (NO)
[2016-12-03 13:13] LABS: FINE GRANULAR CAST 20-30; HYALINE CAST 15-20
[2016-12-03 13:30] LABS: BASO # 0.1 10*3/uL (0.0-0.1); BASO % 0.6 % (0.0-1.0); EOS # 0.1 10*3/uL (0.0-0.4); EOS % 1.1 % (1.0-4.0); HEMATOCRIT 28.4 % (42.0-52.0); HEMOGLOBIN 8.8 g/dl (14.0-18.0); IG # 0.2 10*3/uL (0.0-0.1); LYMPH # 1.1 10*3/uL (1.3-4.4); MEAN CELL VOLUME 91.9 fl (80.0-94.0); MEAN CORPUSCULAR HGB 28.5 pg (27.0-31.0); MEAN PLATELET VOLUME 12.2 fl (9.6-12.3); MONO # 0.8 10*3/uL (0.1-1.0); MONO % 7.8 % (3.0-9.0); NEUT # 7.8 10*3/uL (2.3-7.9); NEUT % 77.9 % (47.0-73.0); NUCLEATED RED BLOOD CELL 0.1 10*3/uL (0.0-0.0); NUCLEATED RED BLOOD CELL 0.9 % (0.0-0.0); PLATELET COUNT AUTOMATED 199 10*3/uL (130-400); RED BLOOD COUNT 3.09 10*6/uL (4.50-5.90); RED CELL DISTRI WIDTH 18.2 % (0-14.5)
[2016-12-03 13:49] VITALS: BP 145/68
[2016-12-03 14:32] LABS: LA>2 REFLEX 2 HR DRAW NOW
[2016-12-03 16:00] VITALS: BP 117/73
[2016-12-03 16:09] LABS: LA>2 RFLX FOLLOW UP AT 2 HRS 2.7 mmol/L (0.4-2.0)
[2016-12-03 17:18] LABS: ABG CO2 CONTENT 21.6 mmol/L (23-27); ABG HCO3 20.4 mmol/l (22-26); ABG TEMPERATURE 97.6 F (98.0-99.0); ARTERIAL BLOOD GAS PH 7.365 (7.35-7.45); ARTERIAL BLOOD GAS PO2 97.5 mmHg (80-90)
[2016-12-03 17:56] LABS: LA>2 REFLEX 4 HR DRAW NOW
[2016-12-03] MEDS ORDERED: MS CONTIN15 MG PO (18:03)
[2016-12-03 18:35] LABS: CKMB 6.4 ng/ml (0.5-3.6)
[2016-12-03 20:00] VITALS: BP 117/82
[2016-12-04] VITALS: BP 116/79
[2016-12-04 06:35] LABS: BASO # 0.1 10*3/uL (0.0-0.1); BASO % 0.7 % (0.0-1.0); EOS # 0.2 10*3/uL (0.0-0.4); EOS % 2.2 % (1.0-4.0); HEMOGLOBIN 8.3 g/dl (14.0-18.0); IG # 0.1 10*3/uL (0.0-0.1); LYMPH # 1.1 10*3/uL (1.3-4.4); LYMPH % 11.7 % (27.0-41.0); MEAN CORPUSCULAR HGB 27.6 pg (27.0-31.0); MEAN CORPUSCULAR HGB CONC 29.6 g/dl (33.0-37.0); MEAN PLATELET VOLUME 12.1 fl (9.6-12.3); MONO # 0.7 10*3/uL (0.1-1.0); MONO % 7.6 % (3.0-9.0); NEUT # 6.9 10*3/uL (2.3-7.9); NEUT % 76.6 % (47.0-73.0); NUCLEATED RED BLOOD CELL 0.1 10*3/uL (0.0-0.0); NUCLEATED RED BLOOD CELL 0.6 % (0.0-0.0); PLATELET COUNT AUTOMATED 180 10*3/uL (130-400); RED BLOOD COUNT 3.01 10*6/uL (4.50-5.90); RED CELL DISTRI WIDTH 18.8 % (0-14.5)
[2016-12-04 07:05] LABS: ALBUMIN 2.7 gm/dl (3.1-4.5); BILIRUBIN, DIRECT 0.5 mg/dL (0.0-0.2); BILIRUBIN, TOTAL 0.9 mg/dl (0.2-1.0); MAGNESIUM 2.3 mg/dL (1.5-2.1); PHOSPHOROUS 3.7 mg/dL (2.5-4.9); POTASSIUM 4.7 mmol/L (3.5-5.1); TOTAL PROTEIN 6.2 gm/dL (6.4-8.2)
[2016-12-04 07:12] LABS: INTERNATIONAL NORM RATIO 1.3 (2.0-3.5); PROTHROMBIN TIME 14.4 SECONDS (9.0-12.4)
[2016-12-04 07:35] LABS: COL/ADP 105 SECONDS (63-105); COL/EPI 158 SECONDS (86-157)
[2016-12-04 08:00] VITALS: BP 130/64
[2016-12-04 12:00] VITALS: BP 113/60
[2016-12-04 16:00] VITALS: BP 108/57
[2016-12-04 20:00] VITALS: BP 112/58
[2016-12-05] VITALS: BP 126/58
[2016-12-05 05:14] LABS: BASO # 0.1 10*3/uL (0.0-0.1); BASO % 0.6 % (0.0-1.0); EOS # 0.2 10*3/uL (0.0-0.4); EOS % 2.8 % (1.0-4.0); HEMATOCRIT 27.5 % (42.0-52.0); HEMOGLOBIN 8.3 g/dl (14.0-18.0); IG # 0.1 10*3/uL (0.0-0.1); LYMPH # 1.5 10*3/uL (1.3-4.4); LYMPH % 19.1 % (27.0-41.0); MEAN CELL VOLUME 94.2 fl (80.0-94.0); MEAN CORPUSCULAR HGB 28.4 pg (27.0-31.0); MEAN CORPUSCULAR HGB CONC 30.2 g/dl (33.0-37.0); MEAN PLATELET VOLUME 12.1 fl (9.6-12.3); MONO # 0.7 10*3/uL (0.1-1.0); MONO % 9.4 % (3.0-9.0); NEUT # 5.3 10*3/uL (2.3-7.9); NUCLEATED RED BLOOD CELL 0.1 10*3/uL (0.0-0.0); NUCLEATED RED BLOOD CELL 0.6 % (0.0-0.0); PLATELET COUNT AUTOMATED 169 10*3/uL (130-400); RED BLOOD COUNT 2.92 10*6/uL (4.50-5.90); RED CELL DISTRI WIDTH 19.3 % (0-14.5); WHITE BLOOD COUNT 7.9 10*3/uL (4.8-10.8)
[2016-12-05 05:35] LABS: ALBUMIN 2.6 gm/dl (3.1-4.5); POTASSIUM 4.1 mmol/L (3.5-5.1)
[2016-12-05 05:38] LABS: BILIRUBIN, TOTAL 0.8 mg/dl (0.2-1.0); TOTAL PROTEIN 5.9 gm/dL (6.4-8.2)
[2016-12-05 06:07] LABS: INTERNATIONAL NORM RATIO 1.3 (2.0-3.5); PROTHROMBIN TIME 13.9 SECONDS (9.0-12.4)
[2016-12-05 08:00] VITALS: BP 119/55
[2016-12-05 12:00] VITALS: BP 109/60
[2016-12-05 16:00] VITALS: BP 117/54
== END 2016-12-05 16:06 | disposition short-term general hospital (02) | DRG 682 ==
LOC: ED 11:54 → EDHOLD 14:07 → 4E 14:07
PROVIDERS: Emergency Medicine; Internal Medicine; Internal Medicine Cardiovascular Disease; Internal Medicine Gastroenterology; Internal Medicine Hospice and Palliative Medicine
DX: N17.0 Acute kidney failure with tubular necrosis (principal); I50.33 Acute on chronic diastolic (congestive) heart failure; E43 Unspecified severe protein-calorie malnutrition; E87.2 Acidosis; R82.2 Biliuria; Z99.81 Dependence on supplemental oxygen; N39.0 Urinary tract infection, site not specified; K80.20 Calculus of gallbladder without cholecystitis without obstruction; I48.0 Paroxysmal atrial fibrillation; M1A.9XX0 Chronic gout, unspecified, without tophus (tophi); E11.9 Type 2 diabetes mellitus without complications; I25.10 Atherosclerotic heart disease of native coronary artery without angina pectoris; D64.9 Anemia, unspecified; K21.9 Gastro-esophageal reflux disease without esophagitis; Z96.653 Presence of artificial knee joint, bilateral; R74.0 Nonspecific elevation of levels of transaminase and lactic acid dehydrogenase [LDH]; Z96.612 Presence of left artificial shoulder joint; Z96.611 Presence of right artificial shoulder joint; Z90.49 Acquired absence of other specified parts of digestive tract; Z98.42 Cataract extraction status, left eye; Z98.41 Cataract extraction status, right eye; Z95.0 Presence of cardiac pacemaker; Z87.891 Personal history of nicotine dependence; Z98.61 Coronary angioplasty status; Z80.8 Family history of malignant neoplasm of other organs or systems; Z82.49 Family history of ischemic heart disease and other diseases of the circulatory system; Z85.46 Personal history of malignant neoplasm of prostate; Z84.89 Family history of other specified conditions; Z88.5 Allergy status to narcotic agent; Z88.9 Allergy status to unspecified drugs, medicaments and biological substances; Z79.82 Long term (current) use of aspirin; Z79.899 Other long term (current) drug therapy; Z68.29 Body mass index [BMI] 29.0-29.9, adult

== ENCOUNTER 2017-03-05 15:47 | Emergency (ER) | payer MEDICARE ==
[~2017-03-05] VITALS: Ht 170.1 cm; Wt 77.6 kg
[2017-03-05 15:47] VITALS: BP 121/67
[~2017-03-05 15:47] MED LIST changes: +MS CONTIN15 MG PO
[2017-03-05 16:39] LABS: BASO % 0.6 % (0.0-1.0); EOS # 0.2 10*3/uL (0.0-0.4); EOS % 2.3 % (1.0-4.0); HEMATOCRIT 34.1 % (42.0-52.0); HEMOGLOBIN 10.5 g/dl (14.0-18.0); LYMPH # 1.5 10*3/uL (1.3-4.4); LYMPH % 20.6 % (27.0-41.0); MEAN CELL VOLUME 89.7 fl (80.0-94.0); MEAN CORPUSCULAR HGB 27.6 pg (27.0-31.0); MEAN CORPUSCULAR HGB CONC 30.8 g/dl (33.0-37.0); MEAN PLATELET VOLUME 12.2 fl (9.6-12.3); MONO # 0.4 10*3/uL (0.1-1.0); MONO % 6.2 % (3.0-9.0); NEUT % 69.7 % (47.0-73.0); PLATELET COUNT AUTOMATED 98 10*3/uL (130-400); RED CELL DISTRI WIDTH 18.3 % (0-14.5); WHITE BLOOD COUNT 7.1 10*3/uL (4.8-10.8)
[2017-03-05 16:57] LABS: ALBUMIN 3.4 gm/dl (3.1-4.5); ALKALINE PHOSPHATASE 88 U/L (45-117); BUN 22 mg/dl (7-24); CHLORIDE 101 mmol/L (98-107); CREATININE 0.85 mg/dL (0.70-1.30); POTASSIUM 4.2 mmol/L (3.5-5.1); SGOT/AST 21 IU/L (3-35); SGPT/ALT 28 U/L (12-78); SODIUM 140 mmol/L (136-145); TOTAL PROTEIN 7.7 gm/dL (6.4-8.2)
[2017-03-05 16:58] LABS: TROPONIN I 0.021 ng/ml (<0.045)
[2017-03-05 17:44] LABS: BILIRUBIN NEGATIVE (NEGATIVE); BLOOD NEGATIVE (NEGATIVE); CLARITY CLEAR (CLEAR); COLOR YELLOW (YELLOW); GLUCOSE NEGATIVE (NEGATIVE); KETONE NEGATIVE (NEGATIVE); LEUKO ESTERASE NEGATIVE (NEGATIVE); NITRITE NEGATIVE (NEGATIVE); PH 6.5 (5.0-9.0); SPECIFIC GRAVITY 1.015 (1.005-1.030); UROBILINOGEN 0.2 E.U./dl (0.2-1.0)
[2017-03-05 17:51] LABS: HYALINE CAST 21-30
[2017-03-05 17:52] LABS: BACTERIA TRACE
== END 2017-03-05 19:06 | disposition left against medical advice (07) ==
LOC: ED 15:47
PROVIDERS: Nurse Practitioner
DX: D64.9 Anemia, unspecified (principal); Z87.891 Personal history of nicotine dependence; Z98.890 Other specified postprocedural states; Z90.49 Acquired absence of other specified parts of digestive tract; Z96.653 Presence of artificial knee joint, bilateral; Z95.0 Presence of cardiac pacemaker; Z79.82 Long term (current) use of aspirin; Z79.899 Other long term (current) drug therapy; Z91.041 Radiographic dye allergy status; Z88.5 Allergy status to narcotic agent; Z88.6 Allergy status to analgesic agent; Z88.1 Allergy status to other antibiotic agents; Z88.3 Allergy status to other anti-infective agents